=== PATIENT | female | born 1945 | race Caucasian/White ===

== ENCOUNTER 2020-06-23 12:05 | Emergency (ER) | payer MEDICARE ==
[~2020-06-23] VITALS: Ht 154.9 cm; Wt 90.9 kg
[2020-06-23 14:08] LABS: HEMOGLOBIN 13.5 g/dl (12.0-16.0); IMMATURE GRANULOCYTES 0.5 % (0.0-5.0); MEAN CELL VOLUME 93.6 fL CALC (80.0-100.0); MEAN CORPUSCULAR HGB 28.7 pG CALC (26.0-32.0); MEAN CORPUSCULAR HGB CONC 30.7 g/dL CAL (32.0-36.0); NEUT# 3.85 thou/uL (2.00-7.15); RED BLOOD COUNT 4.7 mill/uL (4.20-5.60); RED CELL DISTRI WIDTH 12.6 % (11.5-15.5)
[2020-06-23 14:20] LABS: ALKALINE PHOSPHATASE 60 u/l (38-126); ANION GAP 9 (6-22 (CALC)); BILIRUBIN, TOTAL 0.6 mg/dL (0.0-1.4); BUN 13 mg/dL (8-23); BUN/CREATININE RATIO 16 (12-20 (CALC)); CARBON DIOXIDE 31 mmol/l (22-30); CHLORIDE 102 mmol/l (95-108); CREATININE 0.8 mg/dL (0.5-1.0); GFR > 60 ML/MIN (>=60 (CALC)); GFR FOR AFR.AMER. > 60 ML/MIN (>=60 (CALC)); POTASSIUM 4.5 mmol/l (3.5-5.1); SGOT/AST 23 u/l (9-36); SODIUM 137 mmol/l (137-146); TOTAL PROTEIN 6.6 g/dL (6.3-8.2)
[2020-06-23] MEDS ORDERED: CINNAMON500 MG PO (14:22)
[2020-06-23] MEDS ORDERED: SUPER B-COMPLEX1 TA1 PO (14:24)
[2020-06-23] MEDS ORDERED: ACCUPRIL40 MG PO (14:24)
[2020-06-23] MEDS ORDERED: SIMVASTATIN20 MG PO (14:24)
[2020-06-23 14:28] LABS: ACT PARTIAL THROMBO TIME 22.2 SECONDS (20.0-32.5); PROTHROMBIN TIME 9.6 SECONDS (9.0-12.5)
[2020-06-23] MEDS ORDERED: GLUCOSAMINE CHO1 CA3 PO (14:28)
[2020-06-23] MEDS ORDERED: WOMENS DAILY PO (14:29)
[2020-06-23] MEDS ORDERED: VITAMIN B-12500 MCG PO (14:30)
[2020-06-23] MEDS ORDERED: CALCIUM 600+D PO (14:33)
[2020-06-23] MEDS ORDERED: VITAMIN D31000 UNI1 PO (14:34)
[2020-06-23] MEDS ORDERED: CHROMIUM PIC1000 MCG ED (14:35)
[2020-06-23] MEDS ORDERED: OMEGA 31000 MG PO (14:37)
[2020-06-23 15:53] VITALS: BP 138/72
[2020-06-23] MEDS ORDERED: ELIQUIS5 MG PO (16:08)
== END 2020-06-23 15:53 | disposition home or self-care (01) ==
LOC: ED 12:05
DX: I82.811 Embolism and thrombosis of superficial veins of right lower extremity (principal); I10 Essential (primary) hypertension; E78.5 Hyperlipidemia, unspecified; Z86.718 Personal history of other venous thrombosis and embolism; Z20.822 Contact with and (suspected) exposure to COVID-19
CPT/HCPCS: J1650